=== PATIENT | male | born 2000 | race Caucasian/White ===

== ENCOUNTER 2019-06-03 17:19 | Emergency (ER) | payer BC, MEDICAID ==
[~2019-06-03] VITALS: Ht 172.7 cm; Wt 70.3 kg
[2019-06-03] MEDS ORDERED: TDAP [DIPH/PERTUSSIS/TET] 0.5 ML VIAL IM ONE ×2 (18:21→18:30)
[2019-06-03 19:18] VITALS: BP 114/75
== END 2019-06-03 19:20 | disposition home or self-care (01) ==
LOC: ER 17:25
DX: S50.811A Abrasion of right forearm, initial encounter (principal); Z60.2 Problems related to living alone; W54.0XXA Bitten by dog, initial encounter; Y93.01 Activity, walking, marching and hiking; Y92.488 Other paved roadways as the place of occurrence of the external cause; Y99.8 Other external cause status
CPT/HCPCS: 73090-TC; 90715